=== PATIENT | female | born 1960 | race African-American/Black ===

== ENCOUNTER 2016-11-24 13:27 | Emergency (ER) | payer MEDICAID ==
[~2016-11-24] VITALS: Ht 170.2 cm; Wt 59.0 kg
[2016-11-24] MEDS ORDERED: METHYLPREDNISOLONE SOD SUCC 125 MG/2 ML VIAL IV ONE (15:45)
[2016-11-24] MEDS: ALBUTEROL (0.083%) 2.5MG/3ML NEB HHN SCH ×3 (16:00→17:05)
[2016-11-24] MEDS ORDERED: PREDNISONE 20MG TABLET PO ONE (16:00)
[2016-11-24 17:52] VITALS: BP 135/86
== END 2016-11-24 17:53 | disposition home or self-care (01) ==
LOC: ER 16:14
DX: J20.9 Acute bronchitis, unspecified (principal); Z87.891 Personal history of nicotine dependence; Z88.0 Allergy status to penicillin; Z88.6 Allergy status to analgesic agent; F12.10 Cannabis abuse, uncomplicated
CPT/HCPCS: 71010; 99283; J7512; J7611

== ENCOUNTER 2020-09-11 15:37 | Emergency (ER) | payer MEDICAID ==
[~2020-09-11] VITALS: Ht 167.6 cm; Wt 55.0 kg
[2020-09-11 17:05] VITALS: BP 148/85
== END 2020-09-11 17:06 | disposition home or self-care (01) ==
LOC: ER 15:40
DX: H61.23 Impacted cerumen, bilateral (principal); H93.19 Tinnitus, unspecified ear; F12.10 Cannabis abuse, uncomplicated; Z88.0 Allergy status to penicillin; Z88.6 Allergy status to analgesic agent
CPT/HCPCS: 99281

== ENCOUNTER 2021-08-31 10:33 | Emergency (ER) | payer MEDICAID ==
[~2021-08-31] VITALS: Ht 157.5 cm; Wt 65.0 kg
[2021-08-31] MEDS ORDERED: KETOROLAC 30MG/ML VIAL IM ONE (11:15)
[2021-08-31 11:52] LABS: BASOPHILS % 0.4 % (0.0-2.0); HEMATOCRIT. 41.2 % (36.0-48.0); HEMOGLOBIN. 13.2 g/dL (12.0-16.0); LYMPHOCYTES % 13.6 % (20.0-50.0); MEAN CORPUSCULAR HEMOGLOBIN 27.4 pg (28.0-32.0); MEAN CORPUSCULAR VOLUME 85.6 fL (81.0-99.0); MEAN PLATELET VOLUME 7.6 fl (7.4-10.4); PLATELET 332 x1000/uL (130-400); RED BLOOD CELL COUNT 4.81 mill/uL (4.2-5.4); RED CELL DISTRIBUTION WIDTH 13.8 % (11.6-14.6)
[2021-08-31 11:57] LABS: CHLORIDE 105 mEq/L (98-107)
[2021-08-31] MEDS ORDERED: ONDANSETRON 4MG ODT PO ONE (13:15)
[2021-08-31 15:14] VITALS: BP 137/92
[2021-08-31 15:47] LABS: CLARITY URINE CLOUDY (CLEAR); COLOR URINE YELLOW (YELLOW); KETONES URINE 3+ (NEGATIVE); LEUKOCYTE ESTERASE URINE TRACE (NEGATIVE); NITRITE URINE NEGATIVE (NEGATIVE); OCCULT BLOOD URINE 1+ (NEGATIVE); PH URINE 5.5 (4.5-8.0); PROTEIN URINE 3+ (NEGATIVE); SPECIFIC GRAVITY URINE 1.025 (1.005-1.030)
[2021-08-31] MEDS ORDERED: ACET-2708 MT (16:19)
[2021-08-31] MEDS ORDERED: NITR-87 MT (16:19)
[2021-08-31] MEDS ORDERED: ONDA4TAB5 MT (16:20)
[2021-08-31] MEDS ORDERED: NITROFURANTOIN 100MG M/M CAPSULE PO ONE (16:30)
== END 2021-08-31 17:02 | disposition home or self-care (01) ==
LOC: ER 10:33
DX: K80.20 Calculus of gallbladder without cholecystitis without obstruction (principal); N39.0 Urinary tract infection, site not specified; F12.10 Cannabis abuse, uncomplicated; Z88.0 Allergy status to penicillin
CPT/HCPCS: 36415; 74176; 80053; 81003; 83690; 85025; 96372; 99284; J1885; Q0162